=== PATIENT | male | born 1995 | race African-American/Black ===

== ENCOUNTER 2018-10-13 10:15 | Emergency (ER) | payer OTHER | END 2018-10-13 10:50 | disposition home or self-care (01) | LOC: M ED 10:15 | DX: M62.830 Muscle spasm of back (principal); F17.210 Nicotine dependence, cigarettes, uncomplicated | CPT/HCPCS: 99282 ==

== ENCOUNTER 2019-01-14 13:12 | Emergency (ER) | payer OTHER ==
[~2019-01-14] VITALS: Ht 170.2 cm; Wt 68.2 kg
[~2019-01-14 13:12] MED LIST: IBUP-1022 PO; ROBA500T PO
[2019-01-14] MEDS ORDERED: CELE50CA PO (13:17)
[2019-01-14] MEDS ORDERED: KETOROLAC 30 MG/ML VIAL (J1885) IM ONE (14:30)
[2019-01-14 14:52] VITALS: BP 140/68
[2019-01-19] MEDS ORDERED: NAPR-50 PO (14:12)
== END 2019-01-14 14:56 | disposition home or self-care (01) ==
LOC: M ED 13:12
DX: M62.830 Muscle spasm of back (principal)
CPT/HCPCS: 96372; 99283; J1885

== ENCOUNTER 2019-01-19 11:35 | Emergency (ER) | payer OTHER ==
[~2019-01-19] VITALS: Ht 170.2 cm; Wt 70.5 kg
[~2019-01-19 11:35] MED LIST changes: +CELE50CA PO
[2019-01-19] MEDS ORDERED: NAPR-837 PO (14:12)
[2019-01-19] MEDS ORDERED: CYCL10TA PO (14:12)
[2019-01-19] MEDS ORDERED: MEDR4PAK PO (14:12)
[2019-01-19 14:28] VITALS: BP 154/83
== END 2019-01-19 14:28 | disposition home or self-care (01) ==
LOC: M ED 11:35
DX: M54.5 Low back pain (principal); G89.29 Other chronic pain; M62.830 Muscle spasm of back; Z79.899 Other long term (current) drug therapy